=== PATIENT | female | born 1955 | race African-American/Black ===

== ENCOUNTER 2021-03-02 11:45 | Emergency (ER) | payer MEDICARE, MEDICAID ==
[~2021-03-02] VITALS: Ht 165.1 cm; Wt 70.0 kg
[~2021-03-02 11:45] MED LIST: ALBU6.7H9 IH; ALBUTEROL INHALER; ATENOLOL PO; BENADRYL; CYCL30DR BOTHEYE; CYCL30DR OP; FLUT1DIS3 IH; HYDR25TA PO; HYDROXYZINE PO; LEVO500T2 PO; P20 PO; PHEN100C12 PO; PHEN100C4 PO; PHEN100T PO; PHENOBARBITAL PO; PHENYTOIN; PRAV40TA58 PO; VIT1CAPS42 PO
[2021-03-02] MEDS ORDERED: ACETAMINOPHEN 325MG TABLET PO ONE (12:00)
[2021-03-02 12:49] LABS: BASOPHILS % 0.2 % (0.0-2.0); EOSINOPHILS % 0.7 % (0.0-5.0); HEMATOCRIT. 34.9 % (36.0-48.0); HEMOGLOBIN. 11.2 g/dL (12.0-16.0); LYMPHOCYTES % 16.3 % (20.0-50.0); MEAN CORPUSCULAR VOLUME 87.6 fL (81.0-99.0); MEAN PLATELET VOLUME 8.5 fl (7.4-10.4); MONOCYTES % 7.6 % (2.0-8.0); NEUTROPHILS % 75.2 % (40.0-76.0); PLATELET 263 x1000/uL (130-400); RED BLOOD CELL COUNT 3.98 mill/uL (4.2-5.4); RED CELL DISTRIBUTION WIDTH 19.5 % (11.6-14.6)
[2021-03-02 12:57] LABS: CHLORIDE 105 mEq/L (98-107)
[2021-03-02] MEDS ORDERED: PHENYTOIN SODIUM 100MG/2ML VIAL IV ONE (15:30)
[2021-03-02] MEDS ORDERED: SODIUM CHLORIDE 0.9% 1,000 ML IV ONE (15:30)
[2021-03-02] MEDS ORDERED: PHENOBARBITAL 100MG TABLET PO ONE (15:30)
[2021-03-02] MEDS ORDERED: MORPHINE SULFATE 2 MG/ML CPJ (NOT FOR IM USE) IV ONE (15:45)
[2021-03-02 18:33] VITALS: BP 145/72
== END 2021-03-02 18:35 | disposition home or self-care (01) ==
LOC: ER 11:48
DX: R55 Syncope and collapse (principal); R42 Dizziness and giddiness; J44.9 Chronic obstructive pulmonary disease, unspecified; E11.9 Type 2 diabetes mellitus without complications; E78.00 Pure hypercholesterolemia, unspecified; I10 Essential (primary) hypertension; Z79.899 Other long term (current) drug therapy
CPT/HCPCS: 36415; 71045; 80053; 83880; 84484; 85025; 96361; 96374; 96375; 99285; J1165; J2270; J7030